=== PATIENT | male | born 2005 | race Caucasian/White ===

== ENCOUNTER 2025-01-31 08:50 | Emergency (ER) | payer MEDICAID ==
[~2025-01-31] VITALS: Ht 175.3 cm; Wt 131.5 kg
[2025-01-31 09:14] VITALS: BP 120/78; PULSE 90; RESP 18; TEMP 97.1; O2SAT 98
--- NOTE | 2025-01-31 09:44 | RADIOLOGY REPORT ---
DI HAND, COMPLETE (3VW MIN), INDICATION: trauma TECHNICAL DATA: Frontal, oblique and lateral views were obtained of the right hand. COMPARISON: None FINDINGS: No fracture is identified. Joint spaces are maintained. Alignment is anatomic. Soft tissues are within normal limits. IMPRESSION: No acute fracture or dislocation of the right hand.
--- NOTE | 2025-01-31 09:48 | Physician Documentation ---
History of Present Illness ~ Chief Complaint: See Chief Complaint Stated Complaint: HAND PAIN/MH Time Seen by MD: 10:15 HPI This 20-year-old male who was brought to the emergency department by his caregiver from a [facility]dc after he exhibited aggressive this morning, punching something that has facility. He has swelling to the lateral aspect of the right hand. He admits that he was anxious at the time, but feels calm now. When questioned, he denies any suicidal or homicidal ideations. Medication Reconciliation Allergies: Coded Allergies: Influenza Virus Vaccines (Verified Allergy, Unknown, 01/31/25) Scheduled PRN Alprazolam (Alprazolam), 1 TAB PO Q12H PRN PRN for anxiety Review of Systems ROS As stated above in the HPI, otherwise all systems are reviewed and negative. Physical Exam Vital Signs: Temperature: 97.1, Source: Oral, Heart Rate: 90, Respiratory Rate: 18, BP: 120/78, Pulse Oximetry: 98, Weight: 131.500 Physical Exam General: Alert, no apparent distress. Neck: Full range of motion. Respiratory: Lungs clear, no respiratory distress. Chest: No accessory muscle use. Cardiovascular: Regular rate and rhythm, no murmurs. Gastrointestinal: Soft, nontender, nondistended. Bowels sounds present. Extremities: Normal range of motion, no deformity. Mild swelling right lateral hand. No erythema or ecchymosis. Neurologic: Oriented x4. Psychiatric: Normal mood and affect. Skin: Normal color, warm and dry. No edema, no ecchymosis. Progress Results/Orders Results/Orders Orders - CAMMY WILBURN [employer] Hand, Complete (3vw Min) (01/31/25 09:24) Completed Orders - CAMMY WILBURN [employer] Hand, Complete (3vw Min) (01/31/25 09:24) Vital Signs 01/31/25 09:14 Temp 97.1 Pulse 90 Resp 18 B/P (MAP) 120/78 Pulse Ox 98 EKG/XRAY/CT/US/VASC/MRI Bone/Soft Tissue X-Ray (Spine) : Additional Comment [facility] [address] , [place], [facility] [id number] DIAGNOSTIC RADIOLOGY Patient: JOURDAN TONG Medical Record: [id number] OF [facility] : 2005, Age: 20 Sex: Male Location: ER Patient Status: REG ER Service Date/Time: 01/31/25923 Ordering Physician: CAMMY WILBURN NP Exam: HAND, COMPLETE (3VW MIN) DI HAND, COMPLETE (3VW MIN), INDICATION: trauma TECHNICAL DATA: Frontal, oblique and lateral views were obtained of the right hand. COMPARISON: None FINDINGS: No fracture is identified. Joint spaces are maintained. Alignment is anatomic. Soft tissues are within normal limits. IMPRESSION: No acute fracture or dislocation of the right hand. Electronically Signed by:ARTEMIO BEAR MD Date & Time: 01/31/25941 Dictated by: ARTEMIO BEAR MD Dictation date and time: 01/31/25934 Primary Care Provider: NO PRIMARY CARE PROVIDER cc: CAMMY WILBURN NP ~ Medical Decision Making General Diff Dx:Considerations: Include: Abrasion, Contusion, Fracture, Hematoma Additional Comment X-ray obtained. No fractures. On evaluation, patient denies any suicidal or homicidal ideation. He will be sent home with a short supply of alprazolam 0.5 mg to be used daily as needed for anxiety. He is instructed to follow up with the psychiatrist, therapist, primary care provider. Departure Time of Disposition: 10:03 Impression: Primary Impression: Abrasion of right hand Additional Impression: Anxiety Condition: Stable Discharge Instructions: Abrasion, Managing Anxiety, Adult Additional Instructions: No fracture of hand. Use the alprazolam sparingly and occasionally for significant anxiety. Followup with therapist, psychiatrist. Return if worse. Referrals: NO PRIMARY CARE PROVIDER (PCP) Prescriptions Alprazolam (ALPRAZOLAM) 0.5 Mg Tablet 1 TAB PO Q12H PRN PRN for anxiety for 10 Days, #10 TAB 0 Refills Prov: CAMMY WILBURN NP 9/28/25 Education Educated: Patient Educated regarding: diagnosis, treatment, prognosis, need for follow up Signature Scribe Signature: x Attestation: The note accurately reflects work and decisions made by me.Cammy Hutchins NP 01/31/25 10:32 CAMMY WILBURN NP Jan 31, 2025 09:48
[2025-01-31] MEDS ORDERED: ALPR0.5T8 PO (10:08)
== END 2025-01-31 10:21 ==
LOC: ER 08:51
DX: S60.511A Abrasion of right hand, initial encounter (principal); F41.9 Anxiety disorder, unspecified; Z88.7 Allergy status to serum and vaccine; W26.8XXA Contact with other sharp object(s), not elsewhere classified, initial encounter; Y93.89 Activity, other specified; Y92.89 Other specified places as the place of occurrence of the external cause; Y99.8 Other external cause status
CPT/HCPCS: 73130; 99283